=== PATIENT | male | born 1990 | race Caucasian/White ===

== ENCOUNTER 2023-01-17 13:29 | Emergency (ER) | payer BC ==
[2023-01-17] MEDS: Lidocaine 1% 5 ML VIAL INJECT ONE (13:41)
== END 2023-01-17 14:15 | disposition home or self-care (01) ==
LOC: CC.ED 13:29
DX: S61.215A Laceration without foreign body of left ring finger without damage to nail, initial encounter (principal); S61.217A Laceration without foreign body of left little finger without damage to nail, initial encounter; W26.0XXA Contact with knife, initial encounter
CPT/HCPCS: 12001; 99282; 99283; J3490